=== PATIENT | male | born 1960 | race Caucasian/White ===

== ENCOUNTER 2019-04-13 07:18 | Day surgery (SDC) | payer MEDICAID ==
[~2019-04-13] VITALS: Ht 175.3 cm; Wt 105.7 kg
[2019-04-13] MEDS ORDERED: LIDOCAINE 2% 100 MG/5 ML UJET TP ONE (08:35)
[2019-04-13] MEDS ORDERED: fentaNYL 0.05 MG/ML VIAL ONE (08:35)
[2019-04-13] MEDS ORDERED: fentaNYL 0.05 MG/ML VIAL IVP ONE (08:55)
== END 2019-04-13 10:05 | disposition home or self-care (01) ==
LOC: MOR 07:18 → MMU 07:18 → MOR 10:05
PROVIDERS: ATTEND Internal Medicine Gastroenterology
DX: Z12.11 Encounter for screening for malignant neoplasm of colon (principal); D12.3 Benign neoplasm of transverse colon; D12.5 Benign neoplasm of sigmoid colon; D12.4 Benign neoplasm of descending colon; K57.30 Diverticulosis of large intestine without perforation or abscess without bleeding; K64.8 Other hemorrhoids
CPT/HCPCS: 45385; J3010

== ENCOUNTER 2019-05-02 15:58 | Inpatient (IN) | payer MEDICAID ==
[~2019-05-02] VITALS: Ht 175.3 cm; Wt 108.9 kg
[~2019-05-02 15:58] MED LIST: fentaNYL 0.05 MG/ML VIAL ONE
[2019-05-02 16:33] VITALS: BP 102/58
--- NOTE | 2019-05-02 16:38 | NUR ---
TRIAGE COMPLETE. VSS. RETURNED TO LOBBY AWAITNG BED IN ED.
[2019-05-02 17:23] LABS: BASOPHILS % (AUTO) 0.5 % (0.0-2.0); EOSINOPHILS # (AUTO) 0.5 K/uL (0-0.4); EOSINOPHILS % (AUTO) 4.8 % (0.0-4.0); HEMATOCRIT 43.1 % (36-52); HEMOGLOBIN 14.4 g/dL (12.0-18.0); LYMPHOCYTES % (AUTO) 43.5 % (20.5-51.1); MEAN CORPUSCULAR HEMOGLOBIN 29 pg (27-31); MEAN CORPUSCULAR HGB CONC 34 g/dL (33-37); MEAN CORPUSCULAR VOLUME 86.3 fL (80-94); MONOCYTES # (AUTO) 0.7 K/uL (0.8-1.0); MONOCYTES % (AUTO) 7.8 % (1.7-9.3); NEUTROPHILS % (AUTO) 43.4 % (42.2-75.2); PLATELET COUNT (AUTO) 189 K/uL (140-450); RED BLOOD CELL COUNT(AUTO) 4.99 MIL/uL (4.20-6.10); RED CELL DISTRIBUTION WIDTH 13.4 % (11.6-13.7); WHITE BLOOD COUNT (AUTO) 9.3 K/uL (4.8-10.8)
--- NOTE | 2019-05-02 17:37 | NUR ---
PT TAKEN TO BED 9 WITH STEADY GAIT
--- NOTE | 2019-05-02 17:43 | NUR ---
LAB HAS TAKEN URINE BEFORE PT WAS PLACED IN BED. URINE DIP NOT PERFORMED
[2019-05-02 17:44] LABS: ANION GAP 14.5 (8-16); CARBON DIOXIDE 28.7 mmol/L (21-32); CREATININE 1.1 mg/dL (0.7-1.3); POTASSIUM 4.2 mmol/L (3.5-5.1)
[2019-05-02 17:44] LABS: APPEARANCE,URINE CLEAR (CLEAR); BILIRUBIN,URINE NEGATIVE (NEGATIVE); BLOOD, URINE NEGATIVE (NEGATIVE); COLOR,URINE YELLOW (YELLOW); LEUKOCYTE ESTERASE ,URINE NEGATIVE (NEGATIVE); NITRITE, URINE NEGATIVE (NEGATIVE); PH,URINE 5.5 (5.0-9.0); UGLUCOSE NEGATIVE (NEGATIVE)
--- NOTE | 2019-05-02 17:44 | NUR ---
C/O OF L FLANK PAIN 8/10 X WORSENING OVER PAST MONTH. PT REPORTS HE HAS REPEATEDLY SEEN HIS PCP. WAS GIVEN RX OF BACLOFEN ON APR 12, 2019 WITH NO RELIEF. PT DENIES DYSURIA. VS STABLE. PT ALERT AND AWAKE. AMBULATORY WITH STEADY GAIT
--- NOTE | 2019-05-02 17:45 | NUR ---
PMH- DM, RECENTLY STARTED ON BP MEDICATIONS
[2019-05-02 17:56] LABS: TOTAL BILIRUBIN 0.4 mg/dL (0.0-1.0)
--- NOTE | 2019-05-02 17:58 | NUR ---
ACCU CHECK 136
--- NOTE | 2019-05-02 19:11 | NUR ---
REPORT RECEIVED FROM ANDREW CAST.
--- NOTE | 2019-05-02 19:11 | NUR ---
REPORT GIVEN TO HANNAH RN, PT PENDING ERMD AT THIS TIME
--- NOTE | 2019-05-02 19:26 | NUR ---
PATIENT SITTING IN BED QUIETLY WILL CONTINUE TO MONITOR.
[2019-05-02] MEDS ORDERED: KETOROLAC 30 MG/ML VIAL IVP ONE (20:30)
[2019-05-02] MEDS ORDERED: NACL 0.9% 1,000 ML IV ONE (20:30)
--- NOTE | 2019-05-02 20:43 | NUR ---
PATIENT TAKEN TO CT.
--- NOTE | 2019-05-02 21:00 | NUR ---
PATIENT BACK FROM CT.
[2019-05-02] MEDS ORDERED: BACL10TA4 PO (21:49)
[2019-05-02] MEDS ORDERED: METF500T PO (21:53)
[2019-05-02] MEDS ORDERED: FAMO-90 PO (21:53)
[2019-05-02] MEDS ORDERED: LISI10TA11 PO (21:53)
[2019-05-02] MEDS ORDERED: ZOLP10TA1 PO (21:53)
[2019-05-02] MEDS ORDERED: DOCUSATE SODIUM 100 MG GELCAP PO PRN (22:05)
[2019-05-02] MEDS ORDERED: ONDANSETRON 4 MG/2 ML VIAL IM/IVP PRN (22:05)
[2019-05-02] MEDS ORDERED: ACETAMINOPHEN 325 MG TAB PO PRN (22:05)
[2019-05-02] MEDS ORDERED: HYDROcodone/APAP 5/325 MG 1 TAB TAB PO PRN (22:05)
[2019-05-02] MEDS ORDERED: DEXTROSE 50% 50 ML SYR IVP PRN (22:15)
[2019-05-02] MEDS ORDERED: INSULIN LISPRO SLIDING SCALE 100 UNITS/ML VIAL SUBQ PRN (22:15)
[2019-05-02 22:55] VITALS: BP 120/70
[2019-05-02 22:55] LABS: PROTHROMBIN TIME 9.8 secs (10.8-13.4)
--- NOTE | 2019-05-02 22:55 | NUR ---
ADMITTED A60M FROM ER.CAME BY [facility]AVON. AWAKE.ALERT AND ORIENTED X4. ON TELE MONITOR -SR. WITH C/O LEFT FLANK PAIN THTA RADIATES TO THE LOWER BACK. WITH HL ON THE RT HAND G#22. CLEAR AND PATENT. INITIAL SKIN ASSESSMENT DONE, INTACT. PLAN OF CARE DISCUSSED AND VERBALIZED UNDERSTANDING. ORIENTED TO HOSPITAL ROUTINES. BED ON LOW POSITION. CALL LIGHT AND URINAL PACED WITHIN EASY REACH. INSTRUCTED PT TO USE URINAL AND WE NEED TO STRAIN URINE. WILL FOLLOW UP ADMIT ORDERS.
[2019-05-02] MEDS: NACL 0.45% 1,000 ML IV SCH ×2 (23:00→23:25)
--- NOTE | 2019-05-02 23:00 | NUR ---
Patient will be admitted to care of DR. COTE. Admited to TELE. Will go to room 121 B. Belongings list completed. Report to ANDREW HOLT .
[2019-05-02 23:01] LABS: BARBITURATE, URINE NEG. ng/ml (NEG <=200); BENZODIAZEPINE, URINE NEG. ng/mL (NEG <=200); CANNABINOID, URINE NEG. ng/mL (NEG <=50); COCAINE, URINE NEG. ng/mL (NEG <=300); OPIATE, URINE NEG. ng/mL (NEG <=2000); PHENCYCLIDINE SCREEN,URINE NEG. ng/mL (NEG <=25)
[2019-05-03 00:47] LABS: MAGNESIUM 1.9 mg/dL (1.8-2.4); PHOSPHORUS 3.9 mg/dL (2.5-4.9); THYROID STIMULATING HORMONE 1.18 uIU/mL (0.34-3.74)
--- NOTE | 2019-05-03 01:00 | NUR ---
MRSA NARES SPECIMEN COLLECTED AND SEND TO LAB.
--- NOTE | 2019-05-03 03:30 | NUR ---
PT ASLEEP. NO S/S OF ANY PAIN NOTED. WILL CONTINUE TO MONITOR.
[2019-05-03 04:00] VITALS: BP 129/64
[2019-05-03 04:04] LABS: ANION GAP 9.3 (8-16); CARBON DIOXIDE 30.4 mmol/L (21-32); CREATININE 1.2 mg/dL (0.7-1.3); POTASSIUM 4.7 mmol/L (3.5-5.1)
[2019-05-03 04:08] LABS: MAGNESIUM 1.8 mg/dL (1.8-2.4)
[2019-05-03 04:11] LABS: CHOL/HDL RATIO 5.1 (1-4.5)
[2019-05-03 05:24] LABS: BASOPHILS # (AUTO) 0.1 K/uL (0.00-0.22); BASOPHILS % (AUTO) 0.6 % (0.0-2.0); EOSINOPHILS # (AUTO) 0.6 K/uL (0-0.4); EOSINOPHILS % (AUTO) 6.3 % (0.0-4.0); HEMOGLOBIN 13.9 g/dL (12.0-18.0); MEAN CORPUSCULAR HEMOGLOBIN 29 pg (27-31); MEAN CORPUSCULAR HGB CONC 33 g/dL (33-37); MEAN CORPUSCULAR VOLUME 87.3 fL (80-94); MONOCYTES # (AUTO) 0.8 K/uL (0.8-1.0); MONOCYTES % (AUTO) 9.6 % (1.7-9.3); NEUTROPHILS # (AUTO) 3.3 K/uL (1.8-7.7); NEUTROPHILS % (AUTO) 37.5 % (42.2-75.2); PLATELET COUNT (AUTO) 179 K/uL (140-450); RED CELL DISTRIBUTION WIDTH 13.3 % (11.6-13.7); WHITE BLOOD COUNT (AUTO) 8.7 K/uL (4.8-10.8)
[2019-05-03] MEDS: NACL 0.45% 1,000 ML IV SCH ×4 (05:45→23:15)
--- NOTE | 2019-05-03 05:51 | NUR ---
VOIDED X2. TOTA 300 ML. NO RENAL STONE NOTED ON SUMAN URINE AFTER BEEN STRAINED.
[2019-05-03] MEDS: BLOOD GLUCOSE MONITORING 1 DEV DEV FS SCH ×4 (06:08→20:24)
--- NOTE | 2019-05-03 06:15 | NUR ---
BLOOD SUGAR THSI AM RESULT 112. NO INSULIN NEEDED.
[2019-05-03] MEDS: MORPHINE SULFATE 2 MG/ML SYR IVP PRN (06:19)
--- NOTE | 2019-05-03 07:26 | NUR ---
ENDORSED PT IN STABLE CONDITION TO AM NURSE.
--- NOTE | 2019-05-03 07:27 | NUR ---
RECEIVED REPORT FROM JAIL KEEPER NURSE TIKA FOR CONTINUITY OF CARE. PT IN STABLE CONDITION. RESPIRATIONS EVEN AND UNLABORED. IV INTACT AND PATENT. SAFETY MEASURES IN PLACE. BED IN LOW POSITION. CALL LIGHT AT BEDSIDE. WILL CONTINUE TO MONITOR.
[2019-05-03 08:00] VITALS: BP 133/65
--- NOTE | 2019-05-03 08:33 | NUR ---
PATIENT HAS BEEN SCREENED AND CATEGORIZED MODERATE NUTRITION RISK. PATIENT WILL BE SEEN WITHIN 3-5 DAYS OF ADMISSION. 05/05/19 05/07/[address]
[2019-05-03] MEDS: metFORMIN 500 MG TAB PO SCH (09:00)
[2019-05-03] MEDS: TAMSULOSIN 0.4 MG CAP PO SCH (09:16)
[2019-05-03] MEDS: FAMOTIDINE 20 MG TAB PO SCH (09:17)
[2019-05-03] MEDS: LISINOPRIL 10 MG TAB PO SCH (09:17)
[2019-05-03] MEDS: KETOROLAC 15 MG/ML VIAL IVP PRN (09:27)
--- NOTE | 2019-05-03 09:39 | NUR ---
GAVE ORDERED DUE MEDICATIONS AT THIS TIME. PT TOLERATED WELL. BED IN LOW POSITION. CALL LIGHT AT BEDSIDE. WILL CONTINUE TO MONITOR.
--- NOTE | 2019-05-03 11:42 | NUR ---
Brazer Assembler Note: Basic Screen: Yes High Risk DC Screen [place]: ROSELIA PENA [place] Relationship: Pre-Admission Living Arrangements: Lives with Other Prior ADL Independent Current Home Health Name/Tel: N/A Current DME/02 Name/Tel: N/A Current Hospice Name/Tel: N/A Current Dialysis Name/Tel: N/A Healthcare Decision Maker: Patient Advance Directive No Physician Orders for Life Sustaining Treatment Form No Patient/Family Have Educational Needs No Information Taught: Advance Directive Person Taught: Patient Teaching Tools: Verbal Factors Affecting Learning: None Participation Level: Refused Evaluation: Verbalizes Understanding Needs Additional Education: No Discipline: Case Mgt/Social Svcs Tentative Discharge Plan/Destination: No Needs Identified Will require assistance post discharge: No Referred to Assistant Track Coach: No Tentative Discharge Plan Summary: Patient is a 59-year-old male admitted for left nephrolithiasis. Patient has PMHX of kidney stones. Patient was admitted from home where he lives with his , sons, and [id number]. SW met with patient at bedside to verify demographics. Patient reports no history of mental health and no history of substance abuse. Patient's tentative discharge plan is to return home. No further needs identified. Signature: SAMI Viramontes Date: May 03, 2019 Time: 11:41
[2019-05-03 12:00] VITALS: BP 126/64
--- NOTE | 2019-05-03 12:20 | NUR ---
PT TALKING WITH FAMILY AT BEDSIDE. RESPIRATIONS EVEN AND UNLABORED. BED IN LOW POSITION. CALL LIGHT AT BEDSIDE. WILL CONTINUE TO MONITOR.
--- NOTE | 2019-05-03 14:14 | NUR ---
PT WATCHING TV AT THIS TIME. RESPIRATIONS EVEN AND UNLABORED. BED IN LOW POSITION. CALL LIGHT AT BEDSIDE. WILL CONTINUE TO MONITOR.
--- NOTE | 2019-05-03 14:27 | NUR ---
DC PLANNIN YRS OLD MALE PATIENT WAS ADMITTED FROM HOME WITH A DX OF LEFT NEPHROLITHIASIS WITH HYDRONEPHROSIS. PT HAS A HX OF KIDNEY STONE, DM AND HTN . CT ABD SHOWED OBSTRUCTING 1CM CALCULUS . ADMINISTERED IVF ,STARTED ON FLOMAX STRAIN URINE FOR STONES AND UROLOGY CONSULT FOR POSSIBLE NEPHROSTOMY TUBE. DC PLAN TO GO HOME WHEN STABLE CM TO FOLLOW
[2019-05-03 16:00] VITALS: BP 124/68
--- NOTE | 2019-05-03 16:35 | NUR ---
MOVED PT TO ROOM 125B DUE TO NAME ALERT. ALL BELONGINGS MOVED WITH PT. PT TOLERATED WELL.
--- NOTE | 2019-05-03 19:25 | NUR ---
GAVE REPORT TO LIBRARY TECHNICAL ASSISTANT NURSE TIKA FOR CONTINUITY OF CARE. PT IN STABLE CONDITION.
--- NOTE | 2019-05-03 19:26 | NUR ---
RECEIVE DPT IN STABLE CONDITION FROM AM NURSE. AWAKE,ALERT AND ORIENTED X4. ON TELE MONITOR. WITH NO C/O ANY PAIN AT THIS TIME. IVF INFUSING WELL ON THE LT WRIST G#20. CLEAR AND PATENT. AMBULATORY. PLAN OF CARE DISCUSSED AND VERBALIZED UNDERSTANDING. INSTRUCTED THE NEED TO STILL STRAIN ALL HIS URINE. URINAL WITHIN EASY REACH. BED ON LOW POSITION. CALL LIGHT PLACED WITHIN REACH. WILL CONTINUE TO MONITOR.
[2019-05-03 20:00] VITALS: BP 117/41
[2019-05-03] MEDS: ATORVASTATIN 20 MG TAB PO SCH (21:04)
[2019-05-03] MEDS: ZOLPIDEM 10 MG TAB PO SCH (21:05)
--- NOTE | 2019-05-03 22:50 | NUR ---
PT US AWAKE. HAD SOME SNACKS. NO C/O ANY PAIN NOTED.
[2019-05-04 00:30] VITALS: BP 123/59
--- NOTE | 2019-05-04 00:30 | NUR ---
VITAL SIGNS TAKEN. STABLE. NO C/O ANY DISCOMFORT NOR PAIN NOTED AT THIS TIME. INSTRUCTED ABOUT NPO STATUS FROM NOW. VERBALIZED UNDERSTANDING.
--- NOTE | 2019-05-04 01:42 | NUR ---
DR. NEWELL SAID PT FOR XR NEPHROSTOMY TUBE PLACEMENT TODAY.
--- NOTE | 2019-05-04 04:00 | NUR ---
PT IS ASLEEP. NO S/SO ANY DISCOMFORT NOR PAIN NOTED.
[2019-05-04 04:15] VITALS: BP 125/65
[2019-05-04 06:00] LABS: BASOPHILS # (AUTO) 0.1 K/uL (0.00-0.22); BASOPHILS % (AUTO) 0.8 % (0.0-2.0); EOSINOPHILS # (AUTO) 0.5 K/uL (0-0.4); EOSINOPHILS % (AUTO) 7.3 % (0.0-4.0); HEMATOCRIT 40.2 % (36-52); HEMOGLOBIN 13.3 g/dL (12.0-18.0); LYMPHOCYTES # (AUTO) 3.4 K/uL (2.0-11.5); LYMPHOCYTES % (AUTO) 49.1 % (20.5-51.1); MEAN CORPUSCULAR HEMOGLOBIN 29 pg (27-31); MEAN CORPUSCULAR HGB CONC 33 g/dL (33-37); MONOCYTES # (AUTO) 0.6 K/uL (0.8-1.0); MONOCYTES % (AUTO) 8.8 % (1.7-9.3); NEUTROPHILS # (AUTO) 2.4 K/uL (1.8-7.7); PLATELET COUNT (AUTO) 162 K/uL (140-450); RED BLOOD CELL COUNT(AUTO) 4.62 MIL/uL (4.20-6.10)
[2019-05-04] MEDS: BLOOD GLUCOSE MONITORING 1 DEV DEV FS SCH ×4 (06:03→20:38)
--- NOTE | 2019-05-04 06:05 | NUR ---
BLOOD SUGAR CHECKED RESULT 140. NO INSULIN NEEDED.
[2019-05-04] MEDS: NACL 0.45% 1,000 ML IV SCH ×3 (06:19→21:14)
--- NOTE | 2019-05-04 07:00 | NUR ---
HAS BEEN STRAINING URINE. NO STONE NOTED.
[2019-05-04 07:09] LABS: ANION GAP 10.8 (8-16); CARBON DIOXIDE 27.3 mmol/L (21-32); CREATININE 0.9 mg/dL (0.7-1.3); POTASSIUM 4.1 mmol/L (3.5-5.1)
[2019-05-04 07:19] LABS: MAGNESIUM 1.9 mg/dL (1.8-2.4); PHOSPHORUS 4.2 mg/dL (2.5-4.9)
--- NOTE | 2019-05-04 07:25 | NUR ---
RECEIVED BEDSIDE REPORT FROM REGULATORY SCIENTIST NURSE; PT IS ASLEEP AT THIS TIME, NO S/S OF ACUTE DISTRESS NOTED. PT IS ON ROOM AIR, SKIN INTACT. IV SITE L WRIST 20 G INFUSING 1/2 NS 140 ML/HR. PT IS CURRENTLY NPO FOR NEPHROSTOMY TUBE PLACEMENT LATER TODAY. CALL LIGHT IS WITHIN REACH. WILL CONTINUE TO MONITOR.
--- NOTE | 2019-05-04 07:26 | NUR ---
WILL ENDORSED PT IN STABLE CONDITION TO AM NURSE.
[2019-05-04 08:00] VITALS: BP 119/54
--- NOTE | 2019-05-04 08:15 | NUR ---
ТАТЬЯНА TAKEN OFF UNIT TO NEPHROSTOMY TUBE PLACEMENT.
--- NOTE | 2019-05-04 08:28 | NUR ---
RELAYED TO DR MENDOZA THAT RADIOLOGIST NEEDS 2% LIDOCAINE FOR NEPHROSTOMY TUBE PLACEMENT. DR MENDOZA WILL PLACE ORDER.
[2019-05-04] MEDS ORDERED: fentaNYL 0.05 MG/ML VIAL ONE (08:31)
[2019-05-04] MEDS ORDERED: NALOXONE 0.4 MG/ML VIAL ONE (08:33)
[2019-05-04] MEDS ORDERED: LIDOCAINE 2% 1000 MG/50 ML VIAL INJ ONE (08:35)
[2019-05-04] MEDS ORDERED: MIDAZOLAM 2 MG/2 ML VIAL ONE (08:39)
[2019-05-04] MEDS ORDERED: FLUMAZENIL 0.5 MG/5 ML VIAL IVP ONE (08:39)
--- NOTE | 2019-05-04 08:52 | NUR ---
PT IS BACK FROM CT; PT DID NOT HAVE A NEPHROSTOMY TUBE PLACED BECAUSE HE IS ON BABY ASPIRIN, LAST DOSE WAS ON TUESDAY. PT IS UPSET AND SAYING THAT HE IS GOING TO LEAVE AMA. RESIDENT DR DÍAZ MADE AWARE AND WILL GO SPEAK TO THE PT.
[2019-05-04] MEDS ORDERED: LIDOCAINE/EPI 2% 1:100000 20 ML VIAL INJ SCH (09:00)
[2019-05-04] MEDS: TAMSULOSIN 0.4 MG CAP PO SCH (09:31)
[2019-05-04] MEDS: metFORMIN 500 MG TAB PO SCH (09:31)
[2019-05-04] MEDS: LISINOPRIL 10 MG TAB PO SCH (09:31)
[2019-05-04] MEDS: FAMOTIDINE 20 MG TAB PO SCH (09:31)
[2019-05-04] MEDS: MORPHINE SULFATE 2 MG/ML SYR IVP PRN ×2 (09:32→15:06)
--- NOTE | 2019-05-04 09:35 | NUR ---
AM MEDS ADMINISTERED, PT TOLERATED WELL.
--- NOTE | 2019-05-04 09:41 | NUR ---
DR DÍAZ TALKED WITH THE PT, A UROLOGIST WILL BE ABLE TO PERFORM NEPHROSTOMY TUBE PLACEMENT TOMORROW. PT IS AGREEING TO STAY AT THE HOSPITAL UNTIL TOMORROW. PT PLACED ON A CCHO DIET FOR NOW.
[2019-05-04 12:00] VITALS: BP 126/61
--- NOTE | 2019-05-04 12:33 | NUR ---
PT'S BG IS 165 AT THIS TIME. PT IS DECLINING INSULIN COVERAGE, SAYS "I DON'T DO INSULIN, I ONLY TAKE METFORMIN". IS VISITING AT BEDSIDE.
--- NOTE | 2019-05-04 14:00 | NUR ---
CONSENT OBTAINED FOR NEPHROSTOMY TUBE PLACEMENT PROCEDURE TOMORROW
[2019-05-04 16:00] VITALS: BP 131/67
--- NOTE | 2019-05-04 18:02 | NUR ---
PT'S BG IS 126 AT THIS TIME (BEFORE EATING DINNER)
--- NOTE | 2019-05-04 19:23 | NUR ---
ENDORSED PT TO SQUARING MACHINE OPERATOR NURSE IN STABLE CONDITION
--- NOTE | 2019-05-04 19:25 | NUR ---
RECEIVED FROM AM RN IN BED SITTING AT THE EDGE. BEEN AMBULATING TO RESTROOM . ABLE TO VERBALIZE NEEDS WELL. ROM X 4. CLEAR SPEECH. IVF SITE INTACT. PT. ASKING FOR SLEEPING PILL AND HIS PAIN RELIEVER. C/O PAIN TO BACK. DX. OF NEPHROLITHIASIS. REMINDED NPO MIDNIGHT FOR TOMORROW PROCEDURE. "OK"
[2019-05-04] MEDS: ZOLPIDEM 10 MG TAB PO SCH (20:38)
[2019-05-04] MEDS: ATORVASTATIN 20 MG TAB PO SCH (20:39)
[2019-05-04 20:50] VITALS: BP 128/67
[2019-05-04] MEDS: KETOROLAC 15 MG/ML VIAL IVP PRN (21:01)
--- NOTE | 2019-05-05 02:07 | NUR ---
SLEEPING WELL. NO COMPLAINTS DONE. CALL LIGHT WITH IN REACH. AFEBRILE.
[2019-05-05] MEDS: BLOOD GLUCOSE MONITORING 1 DEV DEV FS SCH ×4 (05:38→21:19)
--- NOTE | 2019-05-05 06:44 | NUR ---
SLEPT WELL THIS SHIFT. NO COMPLAINTS DONE. EXCITED TO BE DONE WITH OPERATION. ABLE TO VERBALIZE NEEDS WELL. PT. PICKED UP BY OR STAFF. VERBALIZES WELL.
[2019-05-05] MEDS ORDERED: PROPOFOL 200 MG/20 ML VIAL IV ONE (07:05)
[2019-05-05] MEDS ORDERED: GLYCOPYRROLATE 0.2 MG/ML VIAL ONE (07:05)
[2019-05-05] MEDS ORDERED: ONDANSETRON 4 MG/2 ML VIAL ONE (07:05)
[2019-05-05] MEDS ORDERED: SEVOFLURANE 250 ML BTL INH ONE (07:05)
[2019-05-05] MEDS ORDERED: METOCLOPRAMIDE 10 MG/2 ML INJ VIAL ONE (07:05)
--- NOTE | 2019-05-05 07:28 | NUR ---
RECEIVED REPORT FROM NIGHT NURSE. PT OFF UNIT AT THIS TIME IN THE OR. PT AMBULATORY, SKIN INTACT. WILL CONTINUE TO MONITOR UPON RETURN TO [facility].
[2019-05-05 07:53] LABS: BASOPHILS % (AUTO) 0.7 % (0.0-2.0); EOSINOPHILS # (AUTO) 0.5 K/uL (0-0.4); EOSINOPHILS % (AUTO) 6.3 % (0.0-4.0); HEMATOCRIT 41.1 % (36-52); HEMOGLOBIN 13.8 g/dL (12.0-18.0); LYMPHOCYTES # (AUTO) 3.9 K/uL (2.0-11.5); LYMPHOCYTES % (AUTO) 52.1 % (20.5-51.1); MEAN CORPUSCULAR HEMOGLOBIN 29 pg (27-31); MEAN CORPUSCULAR HGB CONC 34 g/dL (33-37); MONOCYTES # (AUTO) 0.6 K/uL (0.8-1.0); MONOCYTES % (AUTO) 8.5 % (1.7-9.3); NEUTROPHILS # (AUTO) 2.4 K/uL (1.8-7.7); NEUTROPHILS % (AUTO) 32.4 % (42.2-75.2); PLATELET COUNT (AUTO) 167 K/uL (140-450); RED BLOOD CELL COUNT(AUTO) 4.72 MIL/uL (4.20-6.10); RED CELL DISTRIBUTION WIDTH 13.1 % (11.6-13.7); WHITE BLOOD COUNT (AUTO) 7.4 K/uL (4.8-10.8)
[2019-05-05 08:00] VITALS: BP 122/67
[2019-05-05 08:12] LABS: MAGNESIUM 1.9 mg/dL (1.8-2.4); PHOSPHORUS 4.1 mg/dL (2.5-4.9)
[2019-05-05] MEDS: NACL 0.45% 1,000 ML IV SCH ×2 (08:16→23:46)
--- NOTE | 2019-05-05 08:30 | NUR ---
PT RETURNED FROM THE OR AT THIS TIME. PT IN STABLE CONDITION. DENIES PAIN, NO DISTRESS NOTED. SAFETY MEASURES IN PLACE. CALL LIGHT WITHIN REACH. WILL CONTINUE TO MONITOR.
[2019-05-05] MEDS: FAMOTIDINE 20 MG TAB PO SCH (08:33)
[2019-05-05] MEDS: LISINOPRIL 10 MG TAB PO SCH (08:33)
[2019-05-05] MEDS: metFORMIN 500 MG TAB PO SCH (08:33)
[2019-05-05] MEDS: TAMSULOSIN 0.4 MG CAP PO SCH (08:33)
--- NOTE | 2019-05-05 08:48 | NUR ---
MEDICATIONS ADMINISTERED PER ORDER. PT TOLERATED WELL , NO DISTRESS NOTED. WILL CONTINUE TO MONITOR.
[2019-05-05 09:42] LABS: ANION GAP 14.6 (8-16); CARBON DIOXIDE 27.2 mmol/L (21-32); POTASSIUM 4.8 mmol/L (3.5-5.1)
--- NOTE | 2019-05-05 10:42 | NUR ---
PT REQUESTED A SHOWER AND CHANGE OF LINENS. PT SITTING IN CHAIR WATCHING TV. DENIES PAIN, NO DISTRESS NOTED. WILL CONTINUE TO MONITOR.
--- NOTE | 2019-05-05 11:30 | NUR ---
BLOOD SUGAR CHECKED AT THIS TIME, NO COVERAGE NEEDED. PT SITTING IN CHAIR WATCHING TV. EVAN GRAY, NO DISTRESS NOTED. WILL CONTINUE TO MONITOR.
--- NOTE | 2019-05-05 13:42 | NUR ---
PT SITTING AT THE BEDSIDE WATCHING TV. PT DENIES PAIN, NO DISTRESS NOTED. WILL CONTINUE TO MONITOR.
--- NOTE | 2019-05-05 15:51 | NUR ---
IV INSERTED IN LEFT HAND, PT TOLERATED WELL, NO DISTRESS NOTED. SAFETY MEASURES IN PLACE. WILL CONTINUE TO MONITOR.
[2019-05-05 16:00] VITALS: BP 138/64
--- NOTE | 2019-05-05 17:59 | NUR ---
PT SITTING IN CHAIR ACCOMPANIED BY FAMILY MEMBERS. NO DISTRESS NOTED. SAFETY MEASURES IN PLACE, CALL LIGHT WITHIN REACH. WILL CONTINUE TO MONITOR.
--- NOTE | 2019-05-05 19:18 | NUR ---
REPORT GIVEN TO NIGHT NURSE FOR CONTINUITY OF CARE.
--- NOTE | 2019-05-05 19:20 | NUR ---
RECEIVED REPORT FORM YOHANA MORALES DAYSHIFT NURSE AT BEDSIDE FOR CONTINUITY OF CARE, PT IN STABLE CONDITION.
--- NOTE | 2019-05-05 20:00 | NUR ---
PT IN BED AOX4 IV SITE L HAND 22G INTACT AND ASYMPTOMATIC AND RUNNING 1/2NS AT 60MLS/HR. V/S FOLLOWS; T 98.1 P 65 R 20 B/P 157/76 02 98%. ALL UNIVERSAL PRECAUTIONS IN PLACE AND ALL REQUESTED NEEDS ATTENDED BY STAFF.
[2019-05-05] MEDS: ZOLPIDEM 10 MG TAB PO SCH (21:14)
[2019-05-05] MEDS: ATORVASTATIN 20 MG TAB PO SCH (21:15)
[2019-05-05] MEDS: BACLOFEN 10 MG TAB PO PRN (21:16)
--- NOTE | 2019-05-05 21:30 | NUR ---
PT IN BED, C/O BACK /FLANK PAIN 09/18, GIVEN 1 TAB PO/PRN BACLOFEN WELL ORDERED AMBIEN AND LIPITOR MEDICATION EDUCATION PROVIDED AT BEDSIDE, INCLUDING SIDE EFFECTS. ALL REQUESTED NEEDS ATTENDED AND CALL [place] IN REACH.
[2019-05-06] VITALS: BP 157/76
--- NOTE | 2019-05-06 | NUR ---
PT IN BED , SAID THE BACLOFEN HELPED, BUT NOT COMPLETELY RELIEVED THE PAIN. PT WAS ASKED IF HE WANTS ANOTHER PAIN RELIEVER AND HE SAID NO. V/S FOLLOWS: T 97.1 P 75 R 18 B/P 127/54 02 98% ON ROOM AIR. ALL UNIVERSAL FALLS PRECAUTIONS IN PLACE.
--- NOTE | 2019-05-06 02:15 | NUR ---
PT SLEEPING SOUNDLY IN BED 1/2NS RUNNING AT 60MLS/HR ORDERED. NO S/S OF PAIN OR DISTRESS NOTED. ALL UNIVERSAL FALLS PRECAUTIONS IN PLACE.
--- NOTE | 2019-05-06 06:00 | NUR ---
PT IN BED SLEEPING, FLUIDS RUNNING ORDERED. FINGERSTICK IS 142, NO HUMALOG COVERAGE NEEDED.
[2019-05-06] MEDS: BLOOD GLUCOSE MONITORING 1 DEV DEV FS SCH ×4 (06:44→21:30)
[2019-05-06 07:17] LABS: BASOPHILS # (AUTO) 0.1 K/uL (0.00-0.22); BASOPHILS % (AUTO) 0.7 % (0.0-2.0); EOSINOPHILS # (AUTO) 0.6 K/uL (0-0.4); EOSINOPHILS % (AUTO) 7.1 % (0.0-4.0); HEMATOCRIT 42.3 % (36-52); HEMOGLOBIN 14.2 g/dL (12.0-18.0); LYMPHOCYTES # (AUTO) 3.8 K/uL (2.0-11.5); LYMPHOCYTES % (AUTO) 43.2 % (20.5-51.1); MEAN CORPUSCULAR HEMOGLOBIN 29 pg (27-31); MEAN CORPUSCULAR HGB CONC 34 g/dL (33-37); MONOCYTES # (AUTO) 0.8 K/uL (0.8-1.0); MONOCYTES % (AUTO) 9.5 % (1.7-9.3); NEUTROPHILS # (AUTO) 3.5 K/uL (1.8-7.7); NEUTROPHILS % (AUTO) 39.5 % (42.2-75.2); PLATELET COUNT (AUTO) 172 K/uL (140-450); RED BLOOD CELL COUNT(AUTO) 4.86 MIL/uL (4.20-6.10); RED CELL DISTRIBUTION WIDTH 13.3 % (11.6-13.7); WHITE BLOOD COUNT (AUTO) 8.9 K/uL (4.8-10.8)
--- NOTE | 2019-05-06 07:30 | NUR ---
Received report from pm nurse Lynda. Pt resting in bed, awake, verbally responsive, no c/o discomfort at this time. Left hand IV 22G intact with ongoing D5 1/2NS @ 60ml/h. Call light within reach.
[2019-05-06 07:51] LABS: ANION GAP 15.4 (8-16); CARBON DIOXIDE 26.2 mmol/L (21-32); POTASSIUM 4.6 mmol/L (3.5-5.1)
[2019-05-06 07:52] LABS: CREATININE 0.9 mg/dL (0.7-1.3)
[2019-05-06 08:00] VITALS: BP 141/67
--- NOTE | 2019-05-06 08:30 | NUR ---
Pt ate only his oatmeal and refused the rest of his breakfast, stating "I don't eat that. It's for rabbits." Explained dietary restrictions and offered alternative meal. Pt verbalized understanding & states his will bring him food. No other concerns at this time.
[2019-05-06] MEDS: metFORMIN 500 MG TAB PO SCH (08:50)
[2019-05-06] MEDS: FAMOTIDINE 20 MG TAB PO SCH (08:50)
[2019-05-06] MEDS: LISINOPRIL 10 MG TAB PO SCH (08:51)
[2019-05-06] MEDS: TAMSULOSIN 0.4 MG CAP PO SCH (08:52)
[2019-05-06 09:59] LABS: MAGNESIUM 1.8 mg/dL (1.8-2.4); PHOSPHORUS 4.4 mg/dL (2.5-4.9)
--- NOTE | 2019-05-06 11:30 | NUR ---
Pt's at bedside with food for pt. [facility].
--- NOTE | 2019-05-06 15:00 | NUR ---
Pt requested to hold IVF at this time so he can walk around unit. Left hand IV saline locked. Pt ambulating in hallway with steady gait, no c/o discomfort.
[2019-05-06 16:00] VITALS: BP 148/78
[2019-05-06] MEDS: NACL 0.45% 1,000 ML IV SCH (16:26)
--- NOTE | 2019-05-06 19:10 | NUR ---
RECEIVED REPORT FORM RONY RN DAYSHIFT NURSE AT BEDSIDE FOR CONTINUITY OF CARE, PT IN STABLE CONDITION.
--- NOTE | 2019-05-06 19:10 | NUR ---
Report given to nurse Candice.
[2019-05-06 19:37] LABS: PROTHROMBIN TIME 10.1 secs (10.8-13.4)
--- NOTE | 2019-05-06 20:00 | NUR ---
PT UP AND AMBULATING IN ROOM INDEPENDENTLY, NO S/S OF PAIN OR DISTRESS AT THIS TIME. IV SITE ON LEFT HAND IN TACT AND FLUSHED PATENT. PT IS SALINE LOCKED AT THIS TIME. V/S FOLLOWS; T 97.2 P 72 R 18 B/P 144/76 02 98% ON ROOM AIR. ALL UNIVERSAL FALLS PRECAUTIONS IN PLACE.
--- NOTE | 2019-05-06 21:00 | NUR ---
PT FINGERSTICK IS 104, NO HUMALOG COVERAGE NEEDED.
[2019-05-06] MEDS: ZOLPIDEM 10 MG TAB PO SCH (21:22)
[2019-05-06] MEDS: ATORVASTATIN 20 MG TAB PO SCH (21:23)
[2019-05-06] MEDS: BACLOFEN 10 MG TAB PO PRN (21:29)
--- NOTE | 2019-05-06 21:30 | NUR ---
PT AOX4 SITTING ON BED. PT GIVEN ORDERED LIPITOR AND BERNICEIEN PT EDUCATION REGARDING MEDICATION PROVIDED AT BEDSIDE. PT ALSO REQUESTED BACLOFEN FOR LOWER BACK PAIN. ALL OTHER REQUESTS ATTENDED BY STAFF AND CALL [place] IN REACH.
--- NOTE | 2019-05-06 22:30 | NUR ---
PT IN BED RELAXING NO S/S OF PAIN OR DISTRESS NOTED ALL UNIVERSAL FALLS PRECAUTIONS IN PLACE.
[2019-05-07] VITALS: BP 121/53
--- NOTE | 2019-05-07 | NUR ---
PT IN BED ASLEEP, NO S/S OF PAIN OR DISTRESS NOTED. V/S FOLLOWS: T 97.9 P 64 R 18 B/P 121/53 02 95% ON ROOM AIR. PT URINATING WITHOUT COMPLAINT, NO STONE IN URINE. ALL UNIVERSAL FALLS PRECAUTIONS IN PLACE.
--- NOTE | 2019-05-07 02:30 | NUR ---
PT IN BED ASLEEP NO S/S OF PAIN OR DISTRESS NOTED. ALL FALLS PRECAUTIONS IN PLACE.
--- NOTE | 2019-05-07 06:30 | NUR ---
PT FINGERSTICK IS 104 , NO HUMALOG COVERAGE NEEDED. PT SIGNED CONSENT FOR NEPHROLOGY TUBE PLACEMENT.
[2019-05-07 06:53] LABS: BASOPHILS # (AUTO) 0.1 K/uL (0.00-0.22); BASOPHILS % (AUTO) 0.9 % (0.0-2.0); EOSINOPHILS # (AUTO) 0.5 K/uL (0-0.4); EOSINOPHILS % (AUTO) 6.1 % (0.0-4.0); HEMATOCRIT 42.7 % (36-52); HEMOGLOBIN 14.3 g/dL (12.0-18.0); LYMPHOCYTES # (AUTO) 3.3 K/uL (2.0-11.5); LYMPHOCYTES % (AUTO) 43.8 % (20.5-51.1); MEAN CORPUSCULAR HEMOGLOBIN 29 pg (27-31); MEAN CORPUSCULAR HGB CONC 34 g/dL (33-37); MEAN CORPUSCULAR VOLUME 86.7 fL (80-94); MONOCYTES # (AUTO) 0.7 K/uL (0.8-1.0); MONOCYTES % (AUTO) 8.8 % (1.7-9.3); NEUTROPHILS # (AUTO) 3.1 K/uL (1.8-7.7); NEUTROPHILS % (AUTO) 40.4 % (42.2-75.2); PLATELET COUNT (AUTO) 172 K/uL (140-450); RED BLOOD CELL COUNT(AUTO) 4.93 MIL/uL (4.20-6.10); RED CELL DISTRIBUTION WIDTH 13.2 % (11.6-13.7); WHITE BLOOD COUNT (AUTO) 7.6 K/uL (4.8-10.8)
[2019-05-07 07:14] LABS: ANION GAP 13.9 (8-16); CARBON DIOXIDE 28.3 mmol/L (21-32); CREATININE 0.9 mg/dL (0.7-1.3); POTASSIUM 4.2 mmol/L (3.5-5.1)
[2019-05-07 07:26] LABS: MAGNESIUM 1.7 mg/dL (1.8-2.4); PHOSPHORUS 4.1 mg/dL (2.5-4.9)
[2019-05-07] MEDS: BLOOD GLUCOSE MONITORING 1 DEV DEV FS SCH ×2 (07:30→11:49)
--- NOTE | 2019-05-07 07:30 | NUR ---
RECEIVED REPORT FROM ADJUNCT PSYCHOLOGY PROFESSOR NURSE. PT IS RESTING IN BED IN STABLE CONDITION. CALL LIGHT IN REACH.
[2019-05-07 08:00] VITALS: BP 131/74
[2019-05-07] MEDS: TAMSULOSIN 0.4 MG CAP PO SCH (08:47)
[2019-05-07] MEDS: metFORMIN 500 MG TAB PO SCH (08:47)
[2019-05-07] MEDS: LISINOPRIL 10 MG TAB PO SCH (08:47)
[2019-05-07] MEDS: FAMOTIDINE 20 MG TAB PO SCH (08:47)
[2019-05-07] MEDS: NACL 0.45% 1,000 ML IV SCH (08:50)
[2019-05-07] MEDS ORDERED: MIDAZOLAM 2 MG/2 ML VIAL ONE (09:06)
[2019-05-07] MEDS ORDERED: fentaNYL 0.05 MG/ML VIAL ONE (09:06)
--- NOTE | 2019-05-07 09:15 | NUR ---
PT IS OFF OF UNIT TO THE OR FOR A PROCEDURE.
[2019-05-07] MEDS ORDERED: LIDOCAINE 2% 1000 MG/50 ML VIAL INJ ONE (09:38)
--- NOTE | 2019-05-07 10:45 | NUR ---
PT CAME BACK TO THE UNIT FROM THE OR. PT IS IN STABLE CONDITION AT THIS TIME. VITAL SIGNS WERE WITHIN NORMAL LIMITS. NOTED WITH A DRAINAGE TUBE TO THE LEFT POSTERIOR KIDNEY AREA. NOT3ED EMILE Addendum: 05/07/19 at 1120 by Jesica Vivas RN NOTED WITH SEROSANGUINEOUS DRAINAGE IN THE DRAINAGE BAG OF 100 ML. NO DISTRESS NOTED AT THIS TIME. NO COMPLAINS OF PAIN REPORTED. CALL LIGHT IN REACH.
[2019-05-07] MEDS: MORPHINE SULFATE 2 MG/ML SYR IVP PRN (11:41)
--- NOTE | 2019-05-07 12:00 | NUR ---
PT IS SITTING IN BED AT THIS TIME. NO DISTRESS NOTED. NOTED WITH NEPHROSTOMY BAG WITH MONTES COLOR DRAINAGE AT 200ML IN BAG. CALL LIGHT IN REACH.
[2019-05-07] MEDS ORDERED: MORPHINE SULFATE 2 MG/ML SYR IVP PRN (13:25)
[2019-05-07] MEDS ORDERED: MORPHINE SULFATE 2 MG/ML SYR IVP SCH (14:00)
--- NOTE | 2019-05-07 15:00 | NUR ---
PT IS AMBULATING IN HALLWAY AT THIS TIME. PT IS CARRYING NEPHROSTOMY BAG AND WALKING. PT TOLERATING WELL. NO DISTRESS NOTED. CALL LIGHT IN REACH.
--- NOTE | 2019-05-07 15:54 | NUR ---
05/07/19 RD INITIAL ASSESSMENT COMPLETED PLEASE REFER TO NUTRITION ASSESSMENT UNDER CARE ACTIVITY FOR ESTIMATED NUTRITIONAL NEEDS. 1. CONTINUE FULL LIQUID DIET TOLERATED 2. IF/WHEN MEDICALLY STABLE CONSIDER ADVANCING TO [facility] [address] TO FOLLOW-UP 5-7 DAYS,LOW RISK HANDY ROPER, RD
[2019-05-07] MEDS ORDERED: TAMS0.4C96 PO (16:16)
[2019-05-07] MEDS ORDERED: IBUP-2213 PO (16:16)
--- NOTE | 2019-05-07 17:30 | NUR ---
PT WAS DISCHARGED TO DAY. DISCHARGE INSTRUCTIONS GIVEN TO PATIENT. PT WAS STABLE AT DISCHARGE. PAIN TOLERABLE. PT WAS AMBULATING IN HALLWAY PRIOR TO DISCHARGE. IV REMOVED. NO ACTIVE BLEEDING NOTED. ID BAND REMOVED. PT WAS SENT HOME WITH THE NEPHROSTOMY BAG. BAG WAS DRAINED OF MONTES RED COLOR FLUID OF 600 ML. FLUIDS WAS STRAINED FOR SEDIMENTS. NO VISIBLE SEDIMENTS NOTED. INSTRUCTIONS FOR NEPHROSTOMY WAS GIVEN AND RETURN DEMONSTRATION NOTED. BELONGINGS WITH PATIENT. MEDICATIONS SENT TO PHARMACY. PT WILL FOLLOW UP WITH PCP.
== END 2019-05-07 17:45 | disposition home or self-care (01) | DRG 465 ==
LOC: MED 15:58 → MTU 22:05 → MMU 05-03 16:36
PROVIDERS: ADMIT General Practice; ATTEND General Practice
PROC: BT171ZZ Fluoroscopy of Left Ureter using Low Osmolar Contrast (ICD-10-PCS; 2019-05-05)
PROC: 0TJB8ZZ Inspection of Bladder, Via Natural or Artificial Opening Endoscopic (ICD-10-PCS; principal; 2019-05-05 07:00)
PROC: 0T9130Z Drainage of Left Kidney with Drainage Device, Percutaneous Approach (ICD-10-PCS; 2019-05-07)
DX: N13.2 Hydronephrosis with renal and ureteral calculous obstruction (principal); E11.9 Type 2 diabetes mellitus without complications; K21.9 Gastro-esophageal reflux disease without esophagitis; I10 Essential (primary) hypertension; G47.00 Insomnia, unspecified; K57.90 Diverticulosis of intestine, part unspecified, without perforation or abscess without bleeding; E78.5 Hyperlipidemia, unspecified; M54.5 Low back pain; G89.29 Other chronic pain; Z87.891 Personal history of nicotine dependence; Z79.84 Long term (current) use of oral hypoglycemic drugs; Z79.899 Other long term (current) drug therapy; Z89.112 Acquired absence of left hand; Z81.1 Family history of alcohol abuse and dependence; Z84.1 Family history of disorders of kidney and ureter
CPT/HCPCS: 36415; 71045; 75989; 80048; 80053; 80305; 81003; 82948; 83036; 83605; 83735; 83880; 84100; 84134; 84443; 85025; 85610; 85730; 87081; 96361; 96374; 99285; C1729; C1758; C1769; J1815; J1885; J2001; J2250; J2270; J2310; J2405; J2704; J2765; J3010; J3490; J7030; Q0092